=== PATIENT | male | born 1995 | race African-American/Black ===

== ENCOUNTER 2017-01-13 14:34 | Emergency (ER) | payer OTHER, MEDICAID ==
[2017-01-13 14:48] VITALS: BP 128/81
[2017-01-13] MEDS ORDERED: DIPH/PERTUSS(ACELL)/TETANUS VAC/PF 0.5 ML SYR (>=10YO) IM ONE (15:13)
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
== END 2017-01-13 16:58 | disposition home or self-care (01) ==
LOC: ER 14:34
DX: S60.811A Abrasion of right wrist, initial encounter (principal); S40.212A Abrasion of left shoulder, initial encounter; S50.312A Abrasion of left elbow, initial encounter; S50.311A Abrasion of right elbow, initial encounter; W17.89XA Other fall from one level to another, initial encounter; Z23 Encounter for immunization
CPT/HCPCS: 90471; 90715; 99283

== ENCOUNTER 2017-07-12 11:36 | Emergency (ER) | payer MEDICAID ==
--- NOTE | 2017-07-12 12:13 | ER Document Report ---
ED Psych Disorder / Suicide - General Chief Complaint: Psych Problem Stated Complaint: ALTERED MENTAL STATUS Time Seen by Provider: 07/12/17 12:08 Notes: Patient is here with his mother who says that she thinks that he is having a mental problem. She describes him as not eating, not bathing, not keeping his room straight for some time now. He was previously diagnosed with schizophrenia many years ago when he lived in the [place]. Family has moved to this area now. He currently sees no one for mental health and is not on any medications for anything. Mother says he seems to be disoriented and not acting appropriately for the conditions. Says he has been walking in front of cars. Only other history is of asthma. No difficulty breathing or shortness of breath. TRAVEL OUTSIDE OF THE U.S. IN LAST 30 DAYS: No - Related Data Allergies/Adverse Reactions: No Known Allergies Allergy (Verified 07/12/17 11:53) Past Medical History - Social History Smoking Status: Unknown if Ever Smoked Family History: None, Reviewed & Not Pertinent Patient has suicidal ideation: No Patient has homicidal ideation: No Pulmonary Medical History: Reports: Hx Asthma Psychiatric Medical History: Reports: Hx Schizophrenia Past Surgical History: Reports: Hx Orthopedic Surgery - Immunizations Hx Diphtheria, Pertussis, Tetanus Vaccination: - unknown Review of Systems - Review of Systems Notes: REVIEW OF SYSTEMS: Per mother CONSTITUTIONAL : Denies fever. EENT: Denies eye, ear, nose or mouth or throat pain or other symptoms. CARDIOVASCULAR: Denies chest pain. RESPIRATORY: Denies cough, chest congestion, or shortness of breath. GASTROINTESTINAL: Denies abdominal pain or nausea, vomiting, or diarrhea. GENITOURINARY: Denies difficulty or painful urinating, urinary frequency, blood in urine. MUSCULOSKELETAL: Denies back or neck pain. Denies joint pain or swelling. SKIN: Denies rash or skin lesions. NEUROLOGICAL: Denies LOC . Denies headache. Denies sensory loss or motor deficits. ALL OTHER SYSTEMS REVIEWED AND NEGATIVE. -: Yes ROS unobtainable due to patient's medical condition - Patient is unable to give any reliable answers to questions about his ROS. Physical Exam - Vital signs Vitals: Temp Pulse Resp BP Pulse Ox 99.0 F 96 16 120/69 99 07/12/17 11:39 07/12/17 11:39 07/12/17 11:39 07/12/17 11:39 07/12/17 11:39 Interpretation: Normal - Notes Notes: PHYSICAL EXAMINATION: GENERAL: Well-appearing, in no acute distress. Follows command, but unable to get us a urine specimen for some reason. Hesitant to answer all questions. Transported here by EMS. HEAD: Atraumatic, normocephalic. EYES: Pupils equal round and reactive to light, extraocular movements intact. ENT: oropharynx clear without exudates. Moist mucous membranes. NECK: Normal range of motion, supple. LUNGS: Breath sounds clear and equal bilaterally. HEART: Regular rate and rhythm without murmurs. Heart rate 116 at bedside by me. ABDOMEN: Soft, nontender. No guarding or rebound. No masses. BACK: No tenderness throughout entire back. EXTREMITIES: Normal range of motion without pain. NEUROLOGICAL: Normal speech, normal gait. Normal sensory, motor, and reflex exams. Awake, alert, and oriented x3. Cranial nerves normal. PSYCH: Confused, calm, not aggressive. SKIN: Warm, dry, no rashes. Course - Re-evaluation Re-evalutation: 07/12/17 12:13 Laboratory assessment will be performed and mental health will evaluate the patient. - Vital Signs Vital signs: Temp Pulse Resp BP Pulse Ox 99.0 F 96 16 120/69 99 07/12/17 11:39 07/12/17 11:39 07/12/17 11:39 07/12/17 11:39 07/12/17 11:39 - Laboratory Result Diagrams: 07/12/17 11:55 07/12/17 11:55 Laboratory results interpreted by me: 07/12/17 07/12/17 11:55 13:39 Glucose 121 H Urine Urobilinogen 2.0 H Salicylates < 1.0 L Acetaminophen < 10 L - EKG Interpretation by Wa EKG shows normal: Sinus rhythm Rate: Normal - 91 Rhythm: NSR Discharge - Discharge Clinical Impression: Psychosis Condition: Stable
[2017-07-12 12:46] LABS: ABSOLUTE EOSINOPHILS # (AUTO) 0.3 10^3/uL (0.0-0.6); ABSOLUTE LYMPHOCYTES (AUTO) 2.4 10^3/uL (0.5-4.7); ABSOLUTE MONOCYTES (AUTO) 0.4 10^3/uL (0.1-1.4); ABSOLUTE NEUT (AUTO) 3.2 10^3/uL (1.7-8.2); BASOPHILS % (AUTO) 0.7 % (0-2); HEMATOCRIT 43.6 % (37.9-51.0); HEMOGLOBIN 14.9 g/dL (13.5-17.0); LYMPHOCYTES % (AUTO) 37.7 % (13-45); MEAN CORPUSCULAR HGB CONC 34.1 g/dL (32.0-36.0); MEAN CORPUSCULAR VOLUME 94 fl (80-97); MONOCYTES % (AUTO) 6.5 % (3-13); PLATELET COUNT 200 10^3/uL (150-450); RED BLOOD COUNT 4.64 10^6/uL (4.35-5.55); RED CELL DISTRIBUTION WIDTH 13.6 % (11.5-14.0); SEGMENTED NEUTROPHILS % (AUTO) 51.1 % (42-78); TOTAL CELLS COUNTED % (AUTO) 100 %; WHITE BLOOD COUNT 6.3 10^3/uL (4.0-10.5)
[2017-07-12 12:53] LABS: ALANINE AMINOTRANSFERASE 33 U/L (21-72); ALBUMIN 4.8 g/dL (3.5-5.0); ALKALINE PHOSPHATASE 73 U/L (38-126); ANION GAP 11 (5-19); ASPARTATE AMINO TRANSFERASE 24 U/L (17-59); BLOOD UREA NITROGEN 10 mg/dL (7-20); CALCIUM 9.3 mg/dL (8.4-10.2); CARBON DIOXIDE 28 mmol/L (22-30); CHLORIDE 104 mmol/L (98-107); GLUCOSE 121 mg/dL (75-110); POTASSIUM 4.3 mmol/L (3.6-5.0); SODIUM 142.7 mmol/L (137-145); TOTAL PROTEIN 7.2 g/dL (6.3-8.2)
[2017-07-12 12:58] LABS: BILIRUBIN,TOTAL 0.3 mg/dL (0.2-1.3)
[2017-07-12 13:00] LABS: ACETAMINOPHEN < 10 ug/mL (10-30); ALCOHOL < 10 mg/dL (NONE DETECTED); SALICYLATE < 1.0 mg/dL (2.0-20.0)
[2017-07-12 13:01] LABS: BILIRUBIN,DIRECT 0.3 mg/dL (0.0-0.4)
[2017-07-12 13:08] LABS: FREE T4 (FREE THYROXINE) 0.99 ng/dL (0.78-2.19)
[2017-07-12 13:22] LABS: THYROID STIMULATING HORMONE 1.63 uIU/mL (0.47-4.68)
--- NOTE | 2017-07-12 13:48 | EKG REPORT ---
SEVERITY:- BORDERLINE ECG - SINUS RHYTHM BORDERLINE T ABNORMALITIES, ANT-LAT LEADS ST ELEV, PROBABLE NORMAL EARLY REPOL PATTERN : Confirmed by: Logan Garvey MD 12-Jul-2017 13:48:02
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
[2017-07-12] MEDS ORDERED: BENZTROPINE MESYLATE 1 MG TABLET PO SCH (14:00)
[2017-07-12] MEDS: CHLORPROMAZINE HCL 50 MG TABLET PO SCH (14:08)
[2017-07-12 14:10] LABS: APPEARANCE,URINE CLEAR; BILIRUBIN,URINE NEGATIVE (NEGATIVE); COLOR,URINE YELLOW; GLUCOSE, URINE NEGATIVE (NEGATIVE); KETONES,URINE NEGATIVE (NEGATIVE); LEUKOCYTE ESTERASE,URINE NEGATIVE (NEGATIVE); NITRITE,URINE NEGATIVE (NEGATIVE); PROTEIN,URINE NEGATIVE (NEGATIVE); URINE SPECIFIC GRAVITY 1.023
[2017-07-12 14:32] LABS: URINE AMPHETAMINES SCREEN NEGATIVE; URINE BARBITURATES SCREEN NEGATIVE; URINE BENZODIAZEPINES SCREEN NEGATIVE; URINE COCAINE SCREEN NEGATIVE; URINE MARIJUANA (THC) SCREEN NEGATIVE; URINE METHADONE SCREEN NEGATIVE; URINE PHENCYCLIDINE SCREEN NEGATIVE
[2017-07-13] MEDS: CHLORPROMAZINE HCL 50 MG TABLET PO SCH ×2 (02:13→08:37)
--- NOTE | 2017-07-13 09:53 | ER Document Report ---
Doctor's Note Notes: 07/13/17 09:52 Rounds: Chart reviewed and patient interviewed. Patient still seems to be somewhat flighty in his thought processes. He is also difficult to understand when he speaks. Calm and cooperative. Vital signs are all essentially normal. Lab studies were all essentially normal. Patient has been started on Thorazine. Patient appears to be medically stable for transfer or discharge. Wellington Whalen MD
--- NOTE | 2017-07-13 10:31 | PSYCHOLOGICAL NOTE ---
Psych Note - Psych Note Psych Note: Reason For Consult: Psychosis; IVC Consent Permissions Fei Lutz [phone] and Cell ; mother Conducted check-in with patient: Patient disclosed that yesterday he was with his mother doing errands and he felt that another arc cutter plasma arc was acting "Shady." Patient had difficulty communicating his experience in emotions and described events [id number] on what physically occurred (i.e. I walked into the store, I walked out of the store, I walked around the car etc.). Patient denies any mental health difficulties and confirms he did see a therapist for bowling when he was in middle school. Patient disclosed he did not understand why he had to see a therapist then. Patient was asked if he has been experiencing anything that has been stressful lately; he disclosed "the locks" when asked for further information he stated "the locks on doors...the look odd." While clinician is speaking to patient's mother in the room patient randomly stated a word; however denies to repeat or further in engage. Patient is observed with behavior congruent with responding to internal stimuli ie halting speech, inappropriate answers or random words, poor eye contact (stares at his cup or watches clinician's hands), psychomotor agitation (shaking is legs), flat affect , and increased decompensation during evaluation. Patient's mother disclosed increased in symptoms when moving to local area in December. Medication Recommendation: Medication recommendation made by 's contracted psychiatric provider, MD Maribel includes: 1. Thorazine 50 mg every 8 hours 2. Cogentin 1 mg daily. Diagnosis: 295. 90 ( F20.9) Schizophrenia Impression/ Plan: Recommendation to continue under IVC. Patient is still demonstrating behavior indicating psychosis and responding to internal stimuli i.e. halted speech, inappropriate answers are random words, poor eye contact, psychomotor agitation, flat affect, and increased decompensation during evaluation. Dr. Wilson was consulted and the care and management of this patient; attending physician in agreement with recommendations and disposition
[2017-07-13 13:29] VITALS: BP 127/79
== END 2017-07-13 13:40 ==
LOC: ER 11:36
DX: F29 Unspecified psychosis not due to a substance or known physiological condition (principal); R41.82 Altered mental status, unspecified; F20.9 Schizophrenia, unspecified
CPT/HCPCS: 93005; 99285; 36415; 84439; 80307 ×4; 84443; 85025; 80053; 81001; 93010; J3490 ×3

== ENCOUNTER 2017-09-15 11:39 | Emergency (ER) | payer MEDICAID ==
[2017-09-15] MEDS ORDERED: NORMAL SALINE 1000 ML 1,000 ML IV PRN (13:28)
[2017-09-15] MEDS ORDERED: DIPHENHYDRAMINE HCL 50 MG/ML VIAL IV ONE (13:30)
--- NOTE | 2017-09-15 13:31 | ER Document Report ---
HPI - HPI Pain Level: 3 Context: Patient is a 22-year-old male who presents emergency department after referral from [facility] with a chief complaint of allergic reaction. His family member at the bedside states that he had started Prozac 20 mg tablet yesterday and had a reaction of grinding his teeth and rolling his tongue with difficulty talking. She states that she gave him another dose this morning with the same symptoms. She denies any hives, vomiting, abdominal pain. This time patient is having difficulty talking. He denies any pain at this time Past Medical History - Social History Smoking Status: Never Smoker Family History: None, Reviewed & Not Pertinent Pulmonary Medical History: Reports: Hx Asthma Renal/ Medical History: Denies: Hx Peritoneal Dialysis Psychiatric Medical History: Reports: Hx Schizophrenia Past Surgical History: Reports: Hx Orthopedic Surgery - Immunizations Hx Diphtheria, Pertussis, Tetanus Vaccination: - unknown Vertical Provider Document - CONSTITUTIONAL Agree With Documented VS: Yes Notes: PHYSICAL EXAM GENERAL: Alert, interacts well. HEAD: Normocephalic, atraumatic. EYES: Pupils equal, round, and reactive to light. Extraocular movements intact. ENT: Oral mucosa moist, tongue rolling around his mouth with inability to control his jaw with intermittent clenching and spasms. NECK: Full range of motion. Supple. Trachea midline. LUNGS: Clear to auscultation bilaterally, no wheezes, rales, or rhonchi. No respiratory distress. HEART: Regular rate and rhythm. No murmurs, gallops, or rubs. EXTREMITIES: Moves all 4 extremities spontaneously. No edema, radial and dorsalis pedis pulses 2/4 bilaterally. No cyanosis. NEUROLOGICAL: Alert and oriented x4. Normal speech. PSYCH: Normal affect, normal mood. SKIN: Warm, dry, normal turgor. No rashes or lesions noted. - INFECTION CONTROL TRAVEL OUTSIDE OF THE U.S. IN LAST 30 DAYS: No Course - Re-evaluation Re-evalutation: 09/15/17 15:24 Patient is a 22-year-old male who is hemodynamically stable, no acute distress who presents with a dystonic reaction due to his recent new prescription for Prozac. Patient had complete symptom relief after IV Benadryl was administered and IV fluids. Patient has been able to tolerate p.o. fluids and solids well in the department. Patient denies any return of symptoms. Discussed with family member and patient to discontinue this medication and to follow-up with [facility]. There are agree with plan and stable for discharge home. - Vital Signs Vital signs: Temp Pulse Resp BP Pulse Ox 98.9 F 112 H 18 128/77 H 99 09/15/17 11:51 09/15/17 11:51 09/15/17 11:51 09/15/17 11:51 09/15/17 11:51 Discharge - Discharge Clinical Impression: Dystonic drug reaction Condition: Stable Disposition: HOME, SELF-CARE Instructions: Dystonic Reaction to Medication ([facility]) Referrals: GLORIA DALY MD [Primary Care Provider] - Follow up as needed [facility] [Provider Group] - Follow up in 3-5 days
[2017-09-15] MEDS ORDERED: ONDANSETRON HCL INJ/PF 4 MG/2 ML SDV IV ONE (15:20)
[2017-09-15 16:13] VITALS: BP 121/80
== END 2017-09-15 16:26 | disposition home or self-care (01) ==
LOC: ER 11:39
DX: G24.09 Other drug induced dystonia (principal); T43.225A Adverse effect of selective serotonin reuptake inhibitors, initial encounter; X58.XXXA Exposure to other specified factors, initial encounter
CPT/HCPCS: 99283; 96361; 96374; 96375; J1200; J2405; J7030

== ENCOUNTER 2017-10-06 03:33 | Emergency (ER) | payer MEDICAID ==
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
[2017-10-06 04:48] LABS: ABSOLUTE EOSINOPHILS # (AUTO) 0.2 10^3/uL (0.0-0.6); ABSOLUTE LYMPHOCYTES (AUTO) 1.5 10^3/uL (0.5-4.7); ABSOLUTE MONOCYTES (AUTO) 0.4 10^3/uL (0.1-1.4); ABSOLUTE NEUT (AUTO) 3.9 10^3/uL (1.7-8.2); BASOPHILS % (AUTO) 0.5 % (0-2); EOSINOPHILS % (AUTO) 3.3 % (0-6); HEMATOCRIT 40.4 % (37.9-51.0); HEMOGLOBIN 13.6 g/dL (13.5-17.0); LYMPHOCYTES % (AUTO) 25.5 % (13-45); MEAN CORPUSCULAR HEMOGLOBIN 31.7 pg (27.0-33.4); MEAN CORPUSCULAR HGB CONC 33.7 g/dL (32.0-36.0); MEAN CORPUSCULAR VOLUME 94 fl (80-97); MONOCYTES % (AUTO) 6.8 % (3-13); PLATELET COUNT 202 10^3/uL (150-450); RED CELL DISTRIBUTION WIDTH 13.4 % (11.5-14.0); SEGMENTED NEUTROPHILS % (AUTO) 63.9 % (42-78); TOTAL CELLS COUNTED % (AUTO) 100 %
[2017-10-06 04:50] LABS: APPEARANCE,URINE SLIGHTLY-CLOUDY; BILIRUBIN,URINE NEGATIVE (NEGATIVE); COLOR,URINE YELLOW; GLUCOSE, URINE NEGATIVE (NEGATIVE); KETONES,URINE NEGATIVE (NEGATIVE); LEUKOCYTE ESTERASE,URINE NEGATIVE (NEGATIVE); NITRITE,URINE NEGATIVE (NEGATIVE); PROTEIN,URINE NEGATIVE (NEGATIVE); URINE SPECIFIC GRAVITY 1.006; UROBILINOGEN,URINE NEGATIVE mg/dL (<2.0)
[2017-10-06 04:59] LABS: URINE AMPHETAMINES SCREEN NEGATIVE; URINE BARBITURATES SCREEN NEGATIVE; URINE BENZODIAZEPINES SCREEN NEGATIVE; URINE COCAINE SCREEN NEGATIVE; URINE MARIJUANA (THC) SCREEN NEGATIVE; URINE METHADONE SCREEN NEGATIVE; URINE PHENCYCLIDINE SCREEN NEGATIVE
[2017-10-06 05:01] LABS: ALANINE AMINOTRANSFERASE 32 U/L (21-72); ALBUMIN 4.5 g/dL (3.5-5.0); ALKALINE PHOSPHATASE 67 U/L (38-126); ANION GAP 11 (5-19); ASPARTATE AMINO TRANSFERASE 17 U/L (17-59); BILIRUBIN,DIRECT 0.2 mg/dL (0.0-0.4); BILIRUBIN,TOTAL 0.2 mg/dL (0.2-1.3); BLOOD UREA NITROGEN 9 mg/dL (7-20); CALCIUM 9.3 mg/dL (8.4-10.2); CARBON DIOXIDE 30 mmol/L (22-30); CHLORIDE 104 mmol/L (98-107); GLUCOSE 96 mg/dL (75-110); POTASSIUM 3.7 mmol/L (3.6-5.0); SODIUM 144.9 mmol/L (137-145); TOTAL PROTEIN 6.8 g/dL (6.3-8.2)
[2017-10-06 05:02] LABS: ACETAMINOPHEN < 10 ug/mL (10-30); ALCOHOL < 10 mg/dL (NONE DETECTED); SALICYLATE < 1.0 mg/dL (2.0-20.0)
--- NOTE | 2017-10-06 08:19 | EKG REPORT ---
SEVERITY:- NORMAL ECG - SINUS RHYTHM : Confirmed by: Cain Shea 06-Oct-2017 05:18:43
--- NOTE | 2017-10-06 09:50 | ER Document Report ---
Doctor's Note Notes: 10/06/17 09:47 Rounds: Chart reviewed and patient interviewed. Patient has a history of paranoid schizophrenia. He is sitting staring at his breakfast, but not eating it. I began asking him about the scrambled eggs and biscuits and gravy and he said he does not like them. He said he has eaten some cereal and showed me a bowl of half eaten Cheerios. He says he had not seen the FU on his tray yet but would try it. I told him he does not look to be a really very large person anyway and he asked how much he weighed and I said I did not know because it was in his chart and not have to check it. For the record, he was 61.3 kg at triage. Patient has no complaints. Says he is here because he had some dispute with his mother. Vital signs are all normal. Lab studies were all normal. Patient appears to be medically stable for transfer or discharge. Patient says he has an appointment to see his mental health provider this afternoon, although that has not been verified. Wellington Whalen MD
[2017-10-06] MEDS ORDERED: RISPERIDONE 1 MG TABLET PO ONE (11:08)
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
[2017-10-06 13:48] VITALS: BP 110/71
== END 2017-10-06 13:49 | disposition home or self-care (01) ==
LOC: ER 03:33
DX: F20.0 Paranoid schizophrenia (principal)
CPT/HCPCS: 93005; 99285; 36415; 80307 ×4; 85025; 80053; 81001; 93010; J3490

== ENCOUNTER 2019-01-10 12:37 | Emergency (ER) | payer MEDICAID ==
[2019-01-10] MEDS ORDERED: EPINEPHRINE INJ/PF 1 MG/1 ML AMPULE IM ONE (12:51)
[2019-01-10] MEDS ORDERED: FAMOTIDINE INJ/PF 20 MG/2 ML SDV IV ONE (12:52)
[2019-01-10] MEDS ORDERED: DIPHENHYDRAMINE HCL 50 MG/ML VIAL IV ONE ×2 (12:52→13:40)
[2019-01-10] MEDS ORDERED: METHYLPREDNISOLONE INJ 125 MG/2 ML SDV IV ONE (12:52)
--- NOTE | 2019-01-10 12:55 | ER Document Report ---
ED Medical Screen (RME) - General Chief Complaint: Swelling of Tongue Stated Complaint: POSSIBLE ALLERGIC REACTION Time Seen by Provider: 01/10/19 12:51 Mode of Arrival: Ambulatory Information source: Patient, Parent Notes: 24-year-old male presented to ED for complaint of allergic reaction to Abilify. He was prescribed Abilify on Monday but did not take the first dose until this morning. He now has swelling to the jaw lips and tongue. He is respirations are regular and unlabored lungs are clear at this time. Mother states he had an allergic reaction to fluoxetine when they started him on that and then now they have given me Abilify and he is reacting to that. She states his diagnosis is schizoaffective. States he does not drink smoke or use any drugs. He is alert and oriented at this time. He is spitting into a bag. I have greeted and performed a rapid initial assessment of this patient. A comprehensive ED assessment and evaluation of the patient, analysis of test r esults and completion of medical decision making process will be conducted by an additional ED providers. Dictation of this chart was performed using voice recognition software; therefore, there may be some unintended grammatical errors. TRAVEL OUTSIDE OF THE [place] IN LAST 30 DAYS: No - Related Data Allergies/Adverse Reactions: No Known Allergies Allergy (Verified 01/10/19 12:39) Past Medical History Pulmonary Medical History: Reports: Hx Asthma Renal/ Medical History: Denies: Hx Peritoneal Dialysis Psychiatric Medical History: Reports: Hx Schizophrenia Past Surgical History: Reports: Hx Orthopedic Surgery - Immunizations Hx Diphtheria, Pertussis, Tetanus Vaccination: - unknown Physical Exam - Vital signs Vitals: Temp Pulse Resp BP Pulse Ox 99.2 F 115 H 15 113/91 H 99 01/10/19 12:43 01/10/19 12:43 01/10/19 12:43 01/10/19 12:43 01/10/19 12:43 Course - Vital Signs Vital signs: Temp Pulse Resp BP Pulse Ox 99.2 F 115 H 15 113/91 H 99 01/10/19 12:43 01/10/19 12:43 01/10/19 12:43 01/10/19 12:43 01/10/19 12:43
[2019-01-10 15:17] VITALS: BP 107/59
--- NOTE | 2019-01-10 15:25 | ER Document Report ---
ED General - General Chief Complaint: Swelling of Tongue Stated Complaint: POSSIBLE ALLERGIC REACTION Time Seen by Provider: 01/10/19 12:51 Primary Care Provider: GLORIA DALY MD [Primary Care Provider] - Follow up as needed Mode of Arrival: Ambulatory Notes: Patient says that his throat hurting and having difficulty swallowing. Patient has a diagnosis of schizoaffective disorder. He had been on risperidone and another medication but these were changed Monday to Abilify and Trintillex.. He had never taken these medications before. He developed the symptoms he is presenting with now today. He has not had any itching, any rash anywhere, wheezing or difficulty breathing, just complaining of his throat hurting and difficulty swallowing. TRAVEL OUTSIDE OF THE [place] IN LAST 30 DAYS: No - Related Data Allergies/Adverse Reactions: No Known Allergies Allergy (Verified 01/10/19 12:39) Past Medical History - General Information source: Patient, Parent - Social History Smoking Status: Never Smoker Family History: None, Reviewed & Not Pertinent Patient has suicidal ideation: No Patient has homicidal ideation: No Pulmonary Medical History: Reports: Hx Asthma Psychiatric Medical History: Reports: Hx Schizoaffective Disorder Past Surgical History: Reports: Hx Orthopedic Surgery - Immunizations Hx Diphtheria, Pertussis, Tetanus Vaccination: - unknown Review of Systems - Review of Systems Notes: CONSTITUTIONAL : Denies fever. CARDIOVASCULAR: Denies chest pain. RESPIRATORY: Denies cough, chest congestion. GASTROINTESTINAL: Denies abdominal pain or nausea, vomiting, or diarrhea. GENITOURINARY: Denies difficulty or painful urinating, urinary frequency, blood in urine. Physical Exam - Vital signs Vitals: Temp Pulse Resp BP Pulse Ox 99.2 F 115 H 15 113/91 H 99 01/10/19 12:43 01/10/19 12:43 01/10/19 12:43 01/10/19 12:43 01/10/19 12:43 Interpretation: Normal, Tachycardic - At 115, mild Notes: PHYSICAL EXAMINATION: GENERAL: Well-appearing, no acute distress. Vital signs are all normal except for the patient being slightly tachycardic. He HEAD: Atraumatic, normocephalic. NECK: Normal range of motion, supple. EENT: I do not see any swelling of soft tissues in the mouth. Mother thinks the patient's tongue is swollen, however. Appears to have some difficulty with his speech. LUNGS: Breath sounds clear and equal bilaterally. No wheezes heard. HEART: Regular rate and rhythm without murmurs heard. ABDOMEN: Soft, nontender. No guarding or rebound or masses felt. Skin: No rashes seen. No hives. Course - Re-evaluation Re-evalutation: 01/10/19 19:35 Patient symptoms went away entirely. He was able to talk normally. Mother thinks his tongue is back to normal size. I think the patient may have had a dystonic reaction to 1 of his 2 medications. I do not think he had a true allergy. Anyway, he is gotten IV Solu-Medrol and Benadryl and his symptoms have improved, sufficiently so that I think he can be discharged home. Return as needed. - Vital Signs Vital signs: Temp Pulse Resp BP Pulse Ox 99.1 F 115 H 15 107/59 L 100 01/10/19 15:31 01/10/19 12:43 01/10/19 15:02 01/10/19 15:02 01/10/19 15:02 Discharge - Discharge Clinical Impression: Dystonic drug reaction, Allergic reaction Condition: Stable Disposition: HOME, SELF-CARE Additional Instructions: Dystonic Reaction to Medication Your symptoms were most likely caused by the effects of medication on the "muscle control" areas of the brain. This results in uncontrollable movements and muscle spasms. The symptoms usually start with the mouth, jaw, and tongue, but may involve any area of the body. Anti-nausea medications and psychiatric medications (such as Compazine, Reglan, Haldol) can cause this side effect. The usual treatment is diphenhydramine (Benadryl). Mild cases may require only oral medication. However, intravenous medication is most rapidly effective and is usually necessary for severe reactions. It's usually a good idea to take diphenhydramine by mouth for a day or two after the emergency treatment. Your doctor will discuss this with you. It's best to avoid the medicine that caused this reaction in the future. But if it's important that you continue this medicine, you can do so, while using Benadryl on a regular basis to suppress the dystonic reaction. This is not a true allergy. Return if muscle pains or spasms, difficulty breathing or swallowing, or uncontrollable motions occur again. ACUTE ALLERGIC REACTION: Your symptoms might be due to an allergic reaction. Allergy can cause hives, swelling of the hands, feet, and face, hoarseness, and difficulty swallowing or breathing. It may be due to exposure to medication, animal dander, foods, infection, or insect bites. Medication is a common cause, even when prior use of this same medication caused no problems. Acute treatment may include adrenalin and antihistamines. Usually, the specific allergic agent can't be identified unless repeated episodes occur. Home treatment includes the following: (1) Stop any suspicious medications. This will be discussed with you. (2) Oral antihistamines for the next four to five days. Example, diphenhydramine (Benadryl) every four hours. (3) You may also use cimetidine (Tagamet), ranitidine (Zantac), or famotidine (Pepcid) every four hours if diphenhydramine is not controlling itching and hives. (4) Avoid aspirin until the hives completely disappear. (5) Avoid hot baths or showers until the hives are completely gone. Call the doctor if faintness, difficulty swallowing, tightness in the chest, or wheezing occurs. EPINEPHRINE: An injection of epinephrine (also called adrenalin) is used to treat allergic reactions, asthma, and some other medical conditions. It is a stimulant medication that consticts blood vessels, relaxes smooth muscles such as in the bronchioles of the lung, elevates blood pressure, and increases heart rate. It can temporarily make you feel very nervous and shakey, but it's affects last only a short time, about 15 to 30 minutes at most. STEROID MEDICATION INJECTION: You have been given an injection of medicine of the cortisone/steroid class. This medication is used to control inflammation or allergy. It is often continued as a pill for a short period of time, until the acute process subsides. There are usually no side effects from short-term use of cortisone-like medications. Some persons feel an increased sense of well-being and are not sleepy at bedtime. Long-term use of cortisone medications is best avoided, unless required for a severe condition. If your condition does not remit, or relapses after the course of corticosteroid medication, you should consult your physician. ACID-SUPPRESSING MEDICATION: You have a prescription for medicine which reduces the stomach's secretion of acid. Examples include Zantac, Tagament, and Pepcid. These drugs are often used to allow healing of ulcers or esophagitis. They may be needed to prevent recurrence of ulcers in some patients, or to prevent damage from acid reflux in the esophagus. Take all medication as prescribed, even after the pain is gone. Regular antacids may be added as needed if you have symptoms while taking this medicine. These medications sometimes are prescribed for allergic reactions because they have anti-histaminic effects and relieve the rash and itching of the reaction. There are usually no side effects from this medication. But, in rare cases and particularly in the elderly, serious problems can occur. Contact your doctor if there is fever, rash, hallucinations, confusion, or unusual bruising. Contact your doctor at once if you develop lightheadedness, black or bloody stool, or bloody vomitus. USE OF DIPHENHYDRAMINE: The use of diphenhydramine (Benadryl) has been recommended to control allergic symptoms. The 25 mg strength is available over- the-counter, as well as the elixir. This antihistamine is used for many symptoms. It's useful for itching, watering eyes and nose, allergic swelling, hives, and insect stings. The medication can be repeated four times daily. Age Elixir (12.5 mg/tsp) 25 mg pill adult 2 tabs every 6 hours as needed Antihistamines may cause drowsiness, especially with the first dose. Do not operate machinery or drive while under the effects of the medication. Do not combine the medication with alcohol, or with any other medication without talking to your doctor. FOLLOW-UP CARE: If you have been referred to a physician for follow-up care, call the physicians office for an appointment as you were instructed or within the next two days. If you experience worsening or a significant change in your symptoms, notify the physician immediately or return to the Emergency Department at any time for re-evaluation. Stop taking the newly prescribed medications that you started taking Monday. Contact your mental health provider tomorrow morning to get their recommendations for alternative medications. Referrals: GLORIA DALY MD [Primary Care Provider] - Follow up as needed
== END 2019-01-10 15:32 | disposition home or self-care (01) ==
LOC: ER 12:37
DX: G24.09 Other drug induced dystonia (principal); T50.905A Adverse effect of unspecified drugs, medicaments and biological substances, initial encounter; R22.0 Localized swelling, mass and lump, head; R13.10 Dysphagia, unspecified; R07.0 Pain in throat; Z79.899 Other long term (current) drug therapy; J45.909 Unspecified asthma, uncomplicated
CPT/HCPCS: 96376; 99283; 96372; 96374; 96375; J1200; J0171; J2930; S0028